=== PATIENT | female | born 1985 ===

== ENCOUNTER 2020-03-20 08:04 | Outpatient (REF) | payer MEDICAID, SELFPAY ==
[2020-03-21 15:33] LABS: BV Int Neg Control Negative (Negative)
[2020-03-21 15:34] LABS: BV Int Pos Control Positive (Positive)
== END 2020-03-20 08:05 | disposition home or self-care (01) ==
LOC: HO.LAB 08:04
PROVIDERS: PCP Family Medicine; Referring Provider Family Medicine; Visit Provider Advanced Practice Midwife
DX: Z01.419 Encounter for gynecological examination (general) (routine) without abnormal findings (principal); N92.1 Excessive and frequent menstruation with irregular cycle; E66.9 Obesity, unspecified; N64.3 Galactorrhea not associated with childbirth
CPT/HCPCS: 87480; 87510; 87660

== ENCOUNTER → 2020-04-21 10:42 | Outpatient (BNVA) | payer MEDICAID, SELFPAY | PROVIDERS: Visit Provider Advanced Practice Midwife | DX: R58 Hemorrhage, not elsewhere classified (principal) | CPT/HCPCS: 99212 ==

== ENCOUNTER 2020-05-02 10:28 | Outpatient (REF) | payer MEDICAID, SELFPAY ==
[2020-05-03 09:08] LABS: Prolactin 5.7 ng/mL
== END 2020-05-02 10:29 | disposition home or self-care (01) ==
LOC: HO.LAB 10:28
PROVIDERS: PCP Family Medicine; Visit Provider Advanced Practice Midwife
DX: N64.3 Galactorrhea not associated with childbirth (principal)
CPT/HCPCS: 84146

== ENCOUNTER → 2020-07-18 11:45 | Outpatient (BNVA) | payer MEDICAID, SELFPAY | PROVIDERS: PCP Family Medicine; Visit Provider Advanced Practice Midwife ==

== ENCOUNTER 2020-11-24 11:09 | Outpatient (REF) | payer MEDICAID, SELFPAY ==
[2020-11-25 09:24] LABS: BV Int Neg Control Negative (Negative); BV Int Pos Control Positive (Positive)
== END 2020-11-24 11:10 | disposition home or self-care (01) ==
LOC: HO.LAB 11:09
PROVIDERS: Visit Provider Advanced Practice Midwife
DX: Z30.09 Encounter for other general counseling and advice on contraception (principal); N89.8 Other specified noninflammatory disorders of vagina
CPT/HCPCS: 87480; 87510; 87660; 99212

== ENCOUNTER 2021-11-16 13:29 | Emergency (ER) | payer MEDICAID, SELFPAY ==
[2021-11-16 13:46] VITALS: BP 146/102; PULSE 107; RESP 20; TEMP 36.9; O2SAT 100; BMI 31.5
[2021-11-16 14:02] LABS: MANUAL DIFF FLAG NO
[2021-11-16 14:05] LABS: Basophils Percent Auto 0.3 % (0-2); Eosinophils Absolute Auto 0.1 X10*3/uL (0.0-0.4); Hematocrit 36.6 % (37.0-47.0); Hemoglobin 12.4 g/dl (12.0-16.0); Imm Gran Abs Auto 0.04 X10*3/uL (0.00-0.03); Imm Gran Pct Auto 0.3 % (0.0-0.4); Lymphocytes Absolute Auto 4.2 X10*3/uL (1.2-4.9); Lymphocytes Percent Auto 35.3 % (20-40); Mean Corpuscular HGB Conc 33.9 g/dl (31.0-35.0); Mean Corpuscular Hemoglobin 29.2 pg (27.0-33.0); Mean Corpuscular Volume 86.1 fL (80.0-98.0); Monocytes Absolute Auto 0.7 X10*3/uL (0.1-1.2); Monocytes Percent Auto 6.2 % (2-11); Neutrophils Absolute Auto 6.7 x10*3/uL (2.0-8.3); Neutrophils Percent Auto 56.9 % (45-73); Platelet Count 268 X10*3/uL (160-400); Red Blood Count 4.25 X10*6/uL (4.20-5.50); Red Cell Distribution Width 12.1 % (11.0-16.0); White Blood Count 11.8 X10*3/uL (4.8-10.8)
[2021-11-16 14:12] LABS: Appearance Urine HAZY; Color Urine YELLOW; Glucose Urine UA NEG (NEG); Leukocyte Esterase Urine TRACE (NEG); Nitrite Urine NEG (NEG); UACC Culture Trigger NO; Urine Blood 3+ (NEG); Urine Ketones NEG (NEG); Urine Protein NEG (NEG-TRACE)
[2021-11-16 14:22] LABS: Anion Gap 12 (12-20); Blood Urea Nitrogen 3 mg/dL (9-16); Calcium 8.7 mg/dL (8.4-10.2); Carbon Dioxide 25 mmol/L (22-29); Chloride 105 mmol/L (96-108); Creatinine Clr Calc Pharmacy 74.5; Estimated Glomerular Filt Rate > 60; Glucose Random 93 mg/dL (60-115); Potassium 4.6 mmol/L (3.3-5.1); Sodium 137 mmol/L (135-145)
[2021-11-16 14:24] LABS: Bacteria Urine 1+ /LPF; Squamous Epithelial Cell Urine 2+ /LPF
--- NOTE | 2021-11-16 16:31 | ED_ITS ---
HPI - Female Genitourinary General Chief complaint: Urogenital-Female Stated complaint: lower back pain Time Seen by Provider: 11/16/21 16:31 Source: patient Mode of arrival: ambulatory Limitations: no limitations History of Present Illness HPI Narrative: 36 yo female presents to the ER with almost one week of pain upon urination as well as lower back pain. She reports a burning sensation when she urinate and she has pain in her bladder. She reports history of UTI in August. She denies any chance of at this time. She denies any other abdominal pain. She denies any nausea, vomiting, diarrhea, fever, chills. She denies any flank pain and reports the pain is intermittent in her lower back. It is worse with movement and bending down. MD elicited complaint: dysuria and back pain Pertinent past history: recurrent UTIs Onset (ago): day(s) (6) Location of symptoms: suprapubic Severity: moderate Female Urogenital Radiation: Non-Radiating Severity scale (1-10): 5 Quality of pain: burning Consistency: intermittent Vaginal discharge: none Vaginal bleeding: none Urinary symptoms: Dysuria, Urgency and Frequency Exacerbating factors: urination Relieving factors: none Associated symptoms: denies other symptoms Treatment prior to arrival: none Sexual activity: Yes Patient : No Related Data Previous Rx's Medication Instructions Recorded clotrimazole 1 % vaginal cream 1 appful vaginal BEDTIME #45 grams 11/24/20 norethindrone 0.5 mg-ethinyl 1 tab PO DAILY 28 days #28 tabs 11/24/20 estradiol 35 mcg tablet (Necon) metronidazole 500 mg tablet 500 mg PO BID 7 days #14 tabs 11/26/20 (Flagyl) levofloxacin 750 mg tablet 750 mg PO DAILY 7 days #7 tabs 11/16/21 phenazopyridine 100 mg tablet 100 mg PO TID PRN pain 6 doses #6 11/16/21 (Pyridium) tabs Allergies Allergy/AdvReac Type Severity Reaction Status Date / Time No Known Allergies Allergy Mild NOT Verified 11/24/20 11:44 APPLICABLE Review of Systems Review of Systems: Constitutional: No Fever, No Chills Cardiovascular: No Chest Pain, No SOB Respiratory: No Cough, No Sputum Gastrointestinal: No Nausea, No Vomiting, No Diarrhea, + abdominal Pain Genitourinary: + Dysuria, + Urinary Frequency, No Hematuria Musculoskeletal: No joint pain, No Myalgias Skin: No Skin Lesions, No rash Neuro: No Weakness, No Dizziness, No Headache Heme/Lymph: No Bruising, No Lymphadenopathy Endocrine: No Polyuria, No Polydipsia PMFSH Past Medical History Surgical History Hx of section Family History Family History Father Liver cancer Mother Diabetes mellitus Family/Other Down syndrome Social History Social History Alcohol intake: current Alcohol intake frequency: a few times a week Advance Directives: No Advance Directives Information Provided: No Patient : No Physical Exam Vital Signs: Vital Signs: Last Vital Signs Temp 98.5 F 11/16/21 13:46 Pulse 107 H 11/16/21 13:46 Resp 20 11/16/21 13:46 BP 146/102 H 11/16/21 13:46 Pulse Ox 100 11/16/21 13:46 O2 Del Method 11/16/21 13:46 BMI result Body Mass Index 31.5 Appearance: Alert. Oriented X3. No acute distress. Appears well, nontoxic Eyes: Pupils equal, round and reactive to light. ENT: Pharynx normal. Neck: Normal inspection. Neck supple. CVS: Normal heart rate and rhythm. Pulses normal. Respiratory: No respiratory distress. Breath sounds normal. Abdomen: Soft and nontender. +BS x4 Back: No CVA tenderness. No lumbar tenderness Skin: Skin warm and dry. Normal skin color. Normal skin turgor. No rashes. Extremities: No lower extremity edema. Neuro: Oriented X 3. Grossly normal, nonfocal Course Course Course Narrative: 36-year-old female presents to the ER with dysuria for the last 6 days. She also reports lower back pain. She denies any flank pain and has no CVA tenderness on examination. No nausea, vomiting, fever or signs of systemic illness. She appears well on exam. Her lab work shows a white count of 11.8. She has normal renal function. Her urinalysis is showing a blood and leukocyte esterase. There is bacteria as well. Her exam and clinical presentation are consistent with urinary tract infection. Doubt kidney stones given her appearance and lack of CVA tenderness. Will treat with levofloxacin given the presence of blood, duration of her symptoms could be an ascending infection although clinically she appears well. She is tolerating p.o. well and is stable for discharge home wtih PO abx and pyridiuim. She was counseled and given strict return precautions. MDM - Female Genitourinary Lab Data Result diagrams: 11/16/21 13:57 11/16/21 13:57 Labs: Lab Results 11/16/21 11/16/21 11/16/21 Range/Units 13:57 13:57 13:57 WBC 11.8 H (4.8-10.8) X10*3/uL RBC 4.25 (4.20-5.50) X10*6/uL Hgb 12.4 (12.0-16.0) g/dl Hct 36.6 L (37.0-47.0) % MCV 86.1 (80.0-98.0) fL MCH 29.2 (27.0-33.0) pg MCHC 33.9 (31.0-35.0) g/dl RDW 12.1 (11.0-16.0) % Plt Count 268 (160-400) X10*3/uL MPV 10.0 (9.4-12.3) fL Immature Gran % (Auto) 0.3 (0.0-0.4) % Neut % (Auto) 56.9 (45-73) % Lymph % (Auto) 35.3 (20-40) % [place] % (Auto) 6.2 (2-11) % Eos % (Auto) 1.0 (0-4) % Baso % (Auto) 0.3 (0-2) % Lymph # (Auto) 4.2 (1.2-4.9) X10*3/uL [place] # (Auto) 0.7 (0.1-1.2) X10*3/uL Eos # (Auto) 0.1 (0.0-0.4) X10*3/uL Baso # (Auto) 0.0 (0.0-0.2) X10*3/uL Abs Immat Gran (auto) 0.04 H (0.00-0.03) X10*3/uL Absolute Neuts (auto) 6.7 (2.0-8.3) x10*3/uL Absolute Nucleated RBC 0.000 (0.0-0.012) X10*3/uL Nucleated RBC % (auto) 0.0 (0.0-0.2) /100WBC Sodium 137 (135-145) mmol/L Potassium 4.6 (3.3-5.1) mmol/L Chloride 105 (96-108) mmol/L Carbon Dioxide 25 (22-29) mmol/L Anion Gap 12 (12-20) BUN 3 L (9-16) mg/dL Creatinine 0.91 (0.5-1.4) mg/dL Estim Creat Clear Calc 74.5 Estimated GFR > 60 Random Glucose 93 (60-115) mg/dL Calcium 8.7 (8.4-10.2) mg/dL Urine Color YELLOW Urine Appearance HAZY Urine pH 6.0 (5.0-8.0) Ur Specific [place] 1.010 (1.005-1.025) Urine Protein NEG (NEG-TRACE) MG/DL Urine Glucose (UA) NEG (NEG) MG/DL Urine Ketones NEG (NEG) MG/DL Urine Blood 3+ H (NEG) Urine Nitrite NEG (NEG) Ur Leukocyte Esterase TRACE H (NEG) Urine RBC 5-9 H (0) /HPF Urine WBC 1-4 (0-4) /HPF Ur Squamous Epith Cells 2+ /LPF Urine Bacteria 1+ /LPF Discharge Plan Discharge Clinical Impression: Urinary tract infection Patient Disposition: Home, Self-Care Additional Instructions: Your urine test was positive for infection. Take the prescribed antibiotic as directed. Complete the entire course, do not skip any doses. Take the prescribed Pyridium as needed for bladder pain If you develop new or worsening symptoms call 911 or come back to the ER for further evaluation. Prescriptions: New levofloxacin 750 mg tablet 750 mg PO DAILY 7 Days Qty: 7 0RF phenazopyridine [Pyridium] 100 mg tablet 100 mg PO TID PRN (Reason: pain) Qty: 6 0RF No Action metronidazole [Flagyl] 500 mg tablet 500 mg PO BID 7 Days Qty: 14 0RF Rx Instructions: Take with food, Avoid alcohol and vinegar products Necon 0.5/35 (28) 0.5-35 mg-mcg tablet 1 tab PO DAILY 28 Days Qty: 28 7RF clotrimazole 1 % cream 1 appful vaginal BEDTIME Qty: 45 3RF Stand Alone Forms: Work/School Release
[2021-11-16 17:10] LABS: UPreg QC Valid YES; Urine Pregnancy NEGATIVE (NEGATIVE)
== END 2021-11-16 16:50 | disposition home or self-care (01) ==
PROVIDERS: Physician Assistant; Emergency Provider Emergency Medicine; PCP Family Medicine
DX: N39.0 Urinary tract infection, site not specified (principal); M54.50 Low back pain, unspecified; R30.0 Dysuria; Z87.440 Personal history of urinary (tract) infections; Z79.899 Other long term (current) drug therapy
CPT/HCPCS: 36415; 80048; 81001; 81025; 85025; 99283

== ENCOUNTER 2023-03-11 08:16 | Outpatient (REF) | payer MEDICAID, SELFPAY ==
[2023-03-11 18:29] LABS: CT PCR NOT DETECTED (Not Detect.); NG PCR NOT DETECTED (Not Detect.)
[2023-03-12 15:34] LABS: BV Int Neg Control Negative (Negative); BV Int Pos Control Positive (Positive)
== END 2023-03-11 08:17 | disposition home or self-care (01) ==
LOC: HO.LNP 08:16
PROVIDERS: PCP Family Medicine; Visit Provider Advanced Practice Midwife
DX: N89.8 Other specified noninflammatory disorders of vagina (principal)
CPT/HCPCS: 0353U; 87480; 87510; 87660; 99212

== ENCOUNTER 2023-03-11 08:16 | Outpatient (AMB) | payer MEDICAID, SELFPAY ==
--- NOTE | 2023-03-11 08:24 | MHC.OFFVIS ---
Intake Vital Signs 03/11/23 08:28 Height 4 ft 10 in Weight 150 lb BMI 31.3 BP 110/76 Intake Visit Reasons: vag inf Intake Note: The patient agreed to use of a medical records coordinator during this encounter. Scribed for AYDIN Garland by Franchesca Meade medical records coordinator, on 03/11/2023 at 8:35 am EST. Equine Dentist Required: No Information Interpreted: non-clinical & clinical Childhood Teacher: Childhood Teacher Present (Paulina WIGGINS) Accompanied by: Self / Same As Patient Allergies No Known Allergies Allergy (Mild, Verified 03/11/23 08:28) NOT APPLICABLE Is last menstrual period known: Yes Last menstrual period: 03/01/23 HPI HPI Comments History of Present Illness Details She is here today with complaints of vaginal itching for about a week and admits using a new soap. Has used external OTC cream with temporary relief. Admits recently having UPI. Denies urinary symptoms and pelvic pain. STD blood work offered; she declines. [facility] Surgical History Hx of section Family History Father Liver cancer Mother Diabetes mellitus Family/Other Down syndrome Social History Alcohol intake: current Alcohol intake frequency: a few times a week Patient Tobacco Use Status: Never used Tobacco Sexual orientation: Straight/Heterosexual Gender identity: Female Female Reproductive History Menstrual Age of Menarche: 16 Date of last menstrual period: 03/01/23 control method: pills Physical Exam Vital Signs: Last Vital Signs BP 110/76 03/11/23 08:28 BMI result Body Mass Index 31.3 Const General: cooperative, healthy appearing, comfortable, no acute distress, well developed, alert and awake Other: General: Yes bladder normal to palpation External Female Exam: normal external appearance, normal appearance of the urethra and erythema (and edema) Speculum Exam - Vagina: normal appearance of the vagina, normal palpation and abnormal vaginal discharge white (abundant) Speculum Exam - Cervix: normal appearance of the cervix and normal palpation Bimanual exam- vagina & uterus: normal bimanual exam, normal palpation, bladder normal to palpation and normal palpation Bimanual Exam- Adnexa, other: normal adnexae and no masses Assessment & Plan Assessment & Plan (1) Vaginal itching: Code(s): N89.8 - Other specified noninflammatory disorders of vagina Plan: Discussed: BV testing and GC/CT panel done today. Await results and treat accordingly. Advised to clean with water only, no soaps to the area, dry well, use cool compress if needed, wear cotton underwear and no intimacy until fully healed. Rx sent to pharmacy. Encouraged to use condoms for STD and prevention. All of her questions and concerns were addressed to the best of my ability and shared decision making. She is agreeable to plan of care. RTO for AG. Medications: New fluconazole 150 mg PO ONCE PRN 1 tab 0RF personal 1 day Coding Level of Care Code Est Pt Level 3 (60969) Diagnoses Vaginal itching N89.8
[2023-03-11 08:28] VITALS: BP 110/76; BMI 31.3
== END 2023-03-11 08:47 | disposition home or self-care (01) ==
PROVIDERS: PCP Family Medicine; Visit Provider Advanced Practice Midwife
DX: N89.8 Other specified noninflammatory disorders of vagina (principal)
CPT/HCPCS: 99213

== ENCOUNTER 2023-05-05 10:30 | Outpatient (AMB) | payer MEDICAID, SELFPAY ==
--- NOTE | 2023-05-05 10:32 | A.OFFVIS_ITS ---
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 Doing well with no concerns. She reports left nipple discharge with expression. Currently is sexually active. She denies vaginal itching and irritation. STI screening UTD. She declines further testing. Denies family history of breast, ovarian or colon cancer. She denies any contraindications to control such as: migraines with aura, history of DVT or pulmonary emboli, high blood pressure, liver disease, thrombolic disorders, breast cancer, Lupus, +WEN, or smoking. PFSH Surgical History Hx of section Family History Father Liver cancer Mother Diabetes mellitus Family/Other Down syndrome Social History Alcohol intake: current Alcohol intake frequency: a few times a week Patient Tobacco Use Status: Never used Tobacco Sexual orientation: Straight/Heterosexual Gender identity: Female Female Reproductive History Menstrual Age of Menarche: 16 Date of last menstrual period: 04/14/23 control method: pills Total pregnancies: 3 Full term: 2 Number of Living Children: 2 Ab spontaneous: 1 Date of last pap smear: 01/03/18 (neg pap and hpv) Review of Systems Const All systems reviewed & are unremarkable except as noted in HPI and below Reports as per HPI Eyes Reports no additional complaints ENT Reports no additional complaints Card Reports no additional complaints Resp Reports no additional complaints GI Reports as per HPI and Reports no additional complaints Reports as per HPI Musc Reports no additional complaints Skin/Breast Reports as per HPI Neuro Reports no additional complaints Psych Reports no additional complaints Endo Reports no additional complaints Enrique/Lymph Reports no additional complaints Aller/Immun Reports no additional complaints Physical Exam Vital Signs: Last Vital Signs BP 120/80 05/05/23 10:45 BMI result Body Mass Index 30.9 Const General: cooperative, healthy appearing, no acute distress, well developed and alert Orientation/consciousness: patient oriented x3 HEENT Head: Yes normal to inspection Eyes General: appearance normal, both eyes and all related structures Neck Neck: Yes normal visual inspection Thyroid: Thyroid normal Chest Other: Left breast lump noted at 11 to 12 o'clock position nontender. No discharge elicited with exam today. Chest palpation & inspection: normal inspection of the chest, mass and other (no puckering, dimpling, peau de orange, retraction, discharge, masses) Breast/axilla inspection: normal inspection of the breasts Breast/axilla palpation: normal palpation of the breasts Resp Effort & Inspection: normal respiratory effort GI Inspection: Yes normal to inspection Palpation (GI): Soft to palpation Rectal Exam - Female: deferred General: Yes bladder normal to palpation External Female Exam: normal external appearance and normal appearance of the urethra Speculum Exam - Vagina: normal appearance of the vagina, normal palpation and normal vaginal discharge Speculum Exam - Cervix: normal appearance of the cervix, normal palpation and Other cervical findings present (Bled with Pap) Bimanual exam- vagina & uterus: normal bimanual exam, normal palpation, uterine size normal, bladder normal to palpation, normal palpation and non-tender Bimanual Exam- Adnexa, other: no masses Skin General skin exam: no rashes or lesions noted Rashes: no rashes Neuro General: patient oriented x3 Cognition (Neuro): normal cognition Extrem General: Yes normal to inspection Psych Attitude: cooperative Thought process: Normal thought process present Assessment & Plan Assessment & Plan (1) Well woman exam with routine gynecological exam: Code(s): Z01.419 - Encounter for gynecological examination (general) (routine) without abnormal findings Plan: Discussed: Current recommendations for pap smears per ASCCP guidelines. Breast awareness and periodic breast exams. Maintain a healthy lifestyle including a well balanced diet and routine exercise. control hormone use warnings: go to ER if and loss of vision, blindness, severe headache, chest pain or difficulty breathing, severe abdominal pain, or any pain or swelling in an extremity. All of her questions and concerns were addressed to the best of my ability. 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 (2) Left breast lump: Code(s): N63.20 - Unspecified lump in the left breast, unspecified quadrant Qualifiers: Breast mass location: unspecified quadrant Qualified Code(s): N63.20 - Unspecified lump in the left breast, unspecified quadrant Plan: Breast ultrasound and dial diagnostic mammogram. Advised not to milk the breast. Follow-up for test results. Orders: Orders US breast LT complete Today N63.20 - Unspecified lump in the left breast, un specified quadrant MM tomosynthesis diagnostic BI Today Z12.31 - Encounter for screening mammogram for malignant neoplasm of breast Medications: Refilled norethindrone-ethin estradiol 0.5-35 mg-mcg (Nortrel) 1 tab PO DAILY 84 tabs 4RF Coding Level of Care Code Est Pt Prev Care 18-39y(59606) Diagnoses Well woman exam with routine gynecological exam Z01.419 Mass of left breast, unspecified quadrant N63.20 Breast mass location: unspecified quadrant
[2023-05-05 10:45] VITALS: BP 120/80; BMI 30.9
== END 2023-05-05 11:29 | disposition home or self-care (01) ==
LOC: HO.HWS 10:30
PROVIDERS: PCP Family Medicine; Visit Provider Advanced Practice Midwife
DX: Z01.419 Encounter for gynecological examination (general) (routine) without abnormal findings (principal); N63.20 Unspecified lump in the left breast, unspecified quadrant
CPT/HCPCS: 99395

== ENCOUNTER 2023-05-05 10:30 | Outpatient (REF) | payer MEDICAID, SELFPAY ==
[2023-05-12 21:38] LABS: HPV mRNA E6/E7 rflx Not Detected (Not Detected)
== END 2023-05-05 10:31 | disposition home or self-care (01) ==
LOC: HO.LNP 10:30
PROVIDERS: PCP Family Medicine; Visit Provider Advanced Practice Midwife
DX: Z01.419 Encounter for gynecological examination (general) (routine) without abnormal findings (principal); N63.20 Unspecified lump in the left breast, unspecified quadrant
CPT/HCPCS: 87624; 88142; 99395

== ENCOUNTER 2023-06-03 14:16 | Outpatient (REF) | payer MEDICAID, SELFPAY | END 2023-06-03 14:17 | disposition home or self-care (01) | LOC: HO.MAMMO 14:16 | PROVIDERS: PCP Family Medicine; Visit Provider Advanced Practice Midwife | DX: N63.22 Unspecified lump in the left breast, upper inner quadrant (principal) | CPT/HCPCS: 76642; 77062; 77066 ==

== ENCOUNTER → 2023-06-03 14:30 | Outpatient (BNV) | payer MEDICAID, SELFPAY | PROVIDERS: PCP Family Medicine; Visit Provider Radiology Diagnostic Radiology | DX: N63.25 Unspecified lump in the left breast, overlapping quadrants (principal) | CPT/HCPCS: 76642; 77062; 77066 ==

== ENCOUNTER 2023-06-15 19:34 | Outpatient (REF) | payer MEDICAID, SELFPAY | END 2023-06-15 19:35 | disposition home or self-care (01) | LOC: HO.HHCLNP 19:34 | PROVIDERS: Visit Provider Internal Medicine Geriatric Medicine | DX: R07.0 Pain in throat (principal) | CPT/HCPCS: 87070 ==

== ENCOUNTER 2023-08-09 14:44 | Outpatient (REF) | payer MEDICAID, SELFPAY ==
[2023-08-09 16:29] LABS: MANUAL DIFF FLAG NO
[2023-08-09 16:33] LABS: Basophils Absolute Auto 0.1 X10*3/uL (0.0-0.2); Basophils Percent Auto 0.6 % (0-2); Eosinophils Absolute Auto 0.2 X10*3/uL (0.0-0.4); Eosinophils Percent Auto 1.6 % (0-4); Hematocrit 38.5 % (37.0-47.0); Imm Gran Abs Auto 0.04 X10*3/uL (0.00-0.03); Imm Gran Pct Auto 0.4 % (0.0-0.4); Lymphocytes Absolute Auto 3.7 X10*3/uL (1.2-4.9); Lymphocytes Percent Auto 34.1 % (20-40); Mean Corpuscular HGB Conc 33.8 g/dl (31.0-35.0); Mean Corpuscular Hemoglobin 29.7 pg (27.0-33.0); Mean Corpuscular Volume 87.9 fL (80.0-98.0); Mean Platelet Volume 10.6 fL (9.4-12.3); Monocytes Absolute Auto 0.9 X10*3/uL (0.1-1.2); Neutrophils Percent Auto 55.3 % (45-73); Platelet Count 244 X10*3/uL (160-400); Red Blood Count 4.38 X10*6/uL (4.20-5.50); Red Cell Distribution Width 12.4 % (11.0-16.0); White Blood Count 10.9 X10*3/uL (4.8-10.8)
[2023-08-09 16:56] LABS: Estimated Average Glucose 94 mg/dL; Hemoglobin A1c % 4.9 % (<6.0)
[2023-08-09 17:04] LABS: Alanine Aminotransferase 13 U/L (0-31); Albumin Level 4.1 g/dL (3.5-5.0); Alkaline Phosphatase 70 U/L (39-117); Anion Gap 9 (12-20); Aspartate Amino Transferase 16 U/L (5-31); Bilirubin Total 0.3 mg/dL (0.0-1.0); Blood Urea Nitrogen 16 mg/dL (9-16); Calcium 9.3 mg/dL (8.4-10.2); Carbon Dioxide 27 mmol/L (22-29); Chloride 109 mmol/L (96-108); Cholesterol 196 mg/dL (<200); Estimated Glomerular Filt Rate > 60; Glucose Random 119 mg/dL (60-115); HDL Cholesterol 64 mg/dL (>40); LDL Cholesterol Calculated 117 mg/dL (<100); Potassium 4.1 mmol/L (3.3-5.1); Sodium 141 mmol/L (135-145); Total Protein 7.5 g/dL (6.5-8.0); Triglycerides 79 mg/dL (<150)
[2023-08-09 17:09] LABS: TSH reflex Free T4 1.14 uIU/mL (0.32-4.0); Vitamin D 25-OH Total 42.2 ng/mL (>30)
[2023-08-09 20:32] LABS: Reflex LDLD? No
== END 2023-08-09 14:45 | disposition home or self-care (01) ==
LOC: HO.HHCL 14:44
PROVIDERS: Visit Provider Family Medicine
DX: R00.0 Tachycardia, unspecified (principal); E55.9 Vitamin D deficiency, unspecified; R03.0 Elevated blood-pressure reading, without diagnosis of hypertension
CPT/HCPCS: 36415; 80053; 80061; 82306; 83036; 84443; 85025

== ENCOUNTER 2024-03-13 15:31 | Outpatient (AMB) | payer MEDICAID, SELFPAY ==
--- NOTE | 2024-03-13 15:37 | MHC.OFFVIS ---
Vital Signs 03/13/24 15:40 Height 4 ft 10 in Weight 147 lb 11.355 oz BMI 30.9 Intake Visit Reasons: vaginal discharge Windows Vmware Administrator Required: No Information Interpreted: non-clinical & clinical Process Validation Engineer: Process Validation Engineer Present (Paulina WIGGINS) Accompanied by: Self / Same As Patient Allergies No Known Allergies Allergy (Mild, Verified 03/13/24 15:40) NOT APPLICABLE Is last menstrual period known: Yes HPI Comments Details: The patient is complaining of vaginal discharge, clear to whitish, associated with burning and itching but no foul odor. It started few days ago ago. The patient has no other associated symptoms. PFSH Surgical History Hx of section Family History Father Liver cancer Mother Diabetes mellitus Family/Other Down syndrome Social History Alcohol intake: current Alcohol intake frequency: a few times a week Patient Tobacco Use Status: Never used Tobacco Sexual orientation: Straight/Heterosexual Gender identity: Female Female Reproductive History Menstrual Age of Menarche: 16 Review of Systems Const All systems reviewed & are unremarkable except as noted in HPI and below Physical Exam Vital Signs: BMI result Body Mass Index 30.9 General: Yes no CVA tenderness External Female Exam: normal external appearance and normal appearance of the urethra Speculum Exam - Vagina: normal appearance of the vagina, normal palpation, no lesions and no masses Speculum Exam - Cervix: normal appearance of the cervix, normal palpation, no lesions, no masses and nontender Bimanual exam- vagina & uterus: normal bimanual exam, normal palpation, uterine size normal, normal palpation, uterine shape normal, No Cervical tenderness present and non-tender Bimanual Exam- Adnexa, other: normal adnexae Back/Spine/Pelvis Back: no CVA tenderness Assessment & Plan Assessment & Plan (1) Vulvovaginitis: Code(s): N76.0 - Acute vaginitis Category: Medical Plan: GC/CT, Bacterial Vaginosis panel taken, Terazol 0.8% q.h.s. for 3 days was sent to the patient's pharmacy. The patient was instructed to call if symptoms don't improve in 48 hours. Medications: New terconazole 0.8% 1 appful vaginal BEDTIME 3 days 20 grams 0RF Coding Level of Care Code Est Pt Level 3 (57616) Diagnoses Vulvovaginitis N76.0
[2024-03-13 15:40] VITALS: BMI 30.9
== END 2024-03-13 15:53 | disposition home or self-care (01) ==
PROVIDERS: PCP Family Medicine; Visit Provider Obstetrics & Gynecology
DX: N76.0 Acute vaginitis (principal)
CPT/HCPCS: 99213

== ENCOUNTER 2024-05-15 14:22 | Outpatient (REF) | payer MEDICAID, SELFPAY | END 2024-05-15 14:23 | disposition home or self-care (01) | LOC: HO.LNP 14:22 | PROVIDERS: PCP Family Medicine; Visit Provider Advanced Practice Midwife | DX: Z01.419 Encounter for gynecological examination (general) (routine) without abnormal findings (principal); N92.1 Excessive and frequent menstruation with irregular cycle | CPT/HCPCS: 99395; 99459 ==

== ENCOUNTER 2024-05-15 14:22 | Outpatient (AMB) | payer MEDICAID, SELFPAY ==
--- NOTE | 2024-05-15 14:34 | A.OFFVIS_ITS ---
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 Doing well with no concerns. BTB at times, takes pills late at times, no pelvic pain, itching, odor or urinary symptoms. Tried other products: Mirena-pelvic pain and ovarian cyst, Nexplanon- bleed all the time. Hx. left breast cyst, not having any pain. Regular monthly menses. Currently is sexually active. She denies vaginal itching and irritation. STI screening offered; she accepts. She denies any contraindications to control such as: migraines with aura, history of DVT or pulmonary emboli, high blood pressure, liver disease, thrombolic disorders, Lupus, +WEN, breast cancer, or smoking. She tries to eat healthy and stays active with exercise. Denies family history of breast, ovarian or colon cancer. Last pap smear 2022, negative. PFSH Surgical History Hx of section Family History Father Liver cancer Mother Diabetes mellitus Uterine cancer Family/Other Down syndrome Social History Alcohol intake: current Alcohol intake frequency: a few times a week Patient Tobacco Use Status: Never used Tobacco Sexual orientation: Straight/Heterosexual Gender identity: Female Female Reproductive History Menstrual Age of Menarche: 16 Date of last menstrual period: 05/08/24 control method: pills Total pregnancies: 3 Full term: 2 Number of Living Children: 2 Ab spontaneous: 1 Date of last pap smear: 05/05/23 (neg pap and hpv) Review of Systems Const All systems reviewed & are unremarkable except as noted in HPI and below Reports as per HPI Eyes Reports no additional complaints ENT Reports no additional complaints Card Reports no additional complaints Resp Reports no additional complaints GI Reports as per HPI and Reports no additional complaints Reports as per HPI Musc Reports no additional complaints Skin/Breast Reports as per HPI Neuro Reports no additional complaints Psych Reports no additional complaints Endo Reports no additional complaints Enrique/Lymph Reports no additional complaints Aller/Immun Reports no additional complaints Physical Exam Vital Signs: Last Vital Signs BP 120/74 05/15/24 14:35 BMI result Body Mass Index 32.8 Const General: cooperative, healthy appearing, no acute distress, well developed and alert Orientation/consciousness: patient oriented x3 HEENT Head: Yes normal to inspection Eyes General: appearance normal, both eyes and all related structures Neck Neck: Yes normal visual inspection Thyroid: Thyroid normal Chest Chest palpation & inspection: normal inspection of the chest and other (no puckering, dimpling, peau de orange, retraction, discharge, masses) Breast/axilla inspection: normal inspection of the breasts Breast/axilla palpation: normal palpation of the breasts Resp Effort & Inspection: normal respiratory effort GI Inspection: Yes normal to inspection Palpation (GI): Soft to palpation Rectal Exam - Female: deferred General: Yes bladder normal to palpation External Female Exam: normal external appearance and normal appearance of the urethra Speculum Exam - Vagina: normal appearance of the vagina, normal palpation and normal vaginal discharge Speculum Exam - Cervix: normal appearance of the cervix and normal palpation Bimanual exam- vagina & uterus: normal bimanual exam, normal palpation, uterine size normal, bladder normal to palpation, normal palpation and non-tender Bimanual Exam- Adnexa, other: no masses Skin General skin exam: no rashes or lesions noted Rashes: no rashes Neuro General: patient oriented x3 Cognition (Neuro): normal cognition Extrem General: Yes normal to inspection Psych Attitude: cooperative Thought process: Normal thought process present Assessment & Plan Assessment & Plan (1) Well woman exam with routine gynecological exam: Code(s): Z01.419 - Encounter for gynecological examination (general) (routine) without abnormal findings Category: Medical (2) Breakthrough bleeding on control pills: Code(s): N92.1 - Excessive and frequent menstruation with irregular cycle Category: Medical Plan Discussed: Current recommendations for pap smears per ASCCP guidelines. Breast awareness and periodic breast exams. Maintain a healthy lifestyle including a well balanced diet and routine exercise. Use condoms for STI and prevention. Discussed options for control, including the NuvaRing, patient prefers to stay on the pill if possible and we will strive to take it on time, advised to set cell phone alert says a reminder and to continue in the evening with food due to GI. Call sooner if there is any concerns, refill for the year. control hormone use warnings: go to ER if and loss of vision, blindness, severe headache, chest pain or difficulty breathing, severe abdominal pain, or any pain or swelling in an extremity. Patient verbalizes understanding and agrees to the plan of care. She was given opportunity to ask questions and all questions were answered to the best of my ability. 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 This note is constructed using voice recognition software. While every effort has been made to ensure accuracy, feed research technician errors may have been included. Orders: Orders US pelvic and transvaginal Today N92.1 - Excessive and frequent menstruation with irregular cycle CT NG by PCR Today N92.1 - Excessive and frequent menstruation with irregular cycle Bacterial Vaginosis Panel Today N92.1 - Excessive and frequent menstruation with irregular cycle Medications: Refilled norethindrone-ethin estradiol 0.5-35 mg-mcg (Nortrel) 1 tab PO DAILY 84 tabs 4RF Coding Level of Care Code Est Pt Prev Care 18-39y(88556) Diagnoses Well woman exam with routine gynecological exam Z01.419 Breakthrough bleeding on control pills N92.1
[2024-05-15 14:35] VITALS: BP 120/74; BMI 32.8
== END 2024-05-15 15:27 | disposition home or self-care (01) ==
LOC: HO.HWS 14:22
PROVIDERS: PCP Family Medicine; Visit Provider Advanced Practice Midwife
DX: Z01.419 Encounter for gynecological examination (general) (routine) without abnormal findings (principal); N92.1 Excessive and frequent menstruation with irregular cycle
CPT/HCPCS: 99395; 99459

== ENCOUNTER 2024-05-15 15:13 | Outpatient (REF) | payer MEDICAID, SELFPAY ==
[2024-05-15 18:16] LABS: Bacterial Vaginosis PCR NEGATIVE (Negative); Candida Group PCR NOT DETECTED (Not Detect); Candida glab krusei PCR NOT DETECTED (Not Detect); Trichomonas vaginalis PCR NOT DETECTED (Not Detect)
[2024-05-16 12:03] LABS: CT PCR NOT DETECTED (Not Detect.); NG PCR NOT DETECTED (Not Detect.)
== END 2024-05-15 15:14 | disposition home or self-care (01) ==
LOC: HO.LAB 15:13
PROVIDERS: Visit Provider Advanced Practice Midwife
DX: N92.1 Excessive and frequent menstruation with irregular cycle (principal)
CPT/HCPCS: 0352U; 87491; 87591

== ENCOUNTER 2024-06-07 11:04 | Outpatient (REF) | payer MEDICAID, SELFPAY ==
--- NOTE | ~2024-06-07 | US_ITS ---
CLINICAL HISTORY: N92.1 - Excessive and frequent menstruation with irregular cycle US pelvis transabdominal and transvaginal Comparison: None available. Findings: Imaged uterus is anteverted and measures 9 cm long axis. Imaged endometrium measures 0.8 cm thickness. Portions of the endometrium obscured by side of the artifacts. Small cystic structures about the cervix likely due to nabothian cysts. No significant free fluid within the imaged pelvis. Mild wall thickening of the urinary bladder is likely due to underdistention of the time of the imaging. No solid mass associated with either adnexa. No drainable fluid collection by ultrasound. Right ovary 2.5 x 1.9 x 1.8 cm. Left ovary 2.5 x 2.4 x 1.6 cm. With decrease in size and/or measurements of the imaged ovaries relative to reported prior. Prior imaging not available for review at this time. IMPRESSION: 1. Imaged endometrium measures 0.8 cm thickness. 2. No ultrasound findings of ovarian torsion. This document has been electronically signed by: Darci Cole MD on 06/09/2024 01:14:14
== END 2024-06-07 11:05 | disposition home or self-care (01) ==
LOC: HO.US 11:04
PROVIDERS: PCP Family Medicine; Visit Provider Advanced Practice Midwife
DX: N92.1 Excessive and frequent menstruation with irregular cycle (principal)
CPT/HCPCS: 76830; 76856

== ENCOUNTER → 2024-06-07 11:05 | Outpatient (BNV) | payer MEDICAID, SELFPAY | PROVIDERS: PCP Family Medicine; Visit Provider Radiology Neuroradiology | DX: N92.1 Excessive and frequent menstruation with irregular cycle (principal); N88.8 Other specified noninflammatory disorders of cervix uteri | CPT/HCPCS: 76830; 76856 ==

== ENCOUNTER → 2024-07-05 13:11 | Outpatient (AMB) | payer MEDICAID, SELFPAY ==
--- NOTE | 2024-07-05 13:11 | A.OFFVIS_ITS ---
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 Time spent included review of pertinent office notes in the electronic health record; review of laboratory and imaging results; review of personal family medical history; discussing diagnosis and plan of care with the patient; documenting the encounter in the EMR. Patient presents to discuss: Follow up ultrasound results, history of breakthrough bleeding on control pills. PFSH Surgical History Hx of section Family History Father Liver cancer Mother Diabetes mellitus Uterine cancer Family/Other Down syndrome Social History Alcohol intake: current Alcohol intake frequency: a few times a week Patient Tobacco Use Status: Never used Tobacco Sexual orientation: Straight/Heterosexual Gender identity: Female Female Reproductive History Menstrual Age of Menarche: 16 Review of Systems Const All systems reviewed & are unremarkable except as noted in HPI and below Endo Reports no additional complaints Physical Exam Const General: cooperative, healthy appearing and no acute distress Psych Appearance: well kempt Attitude: cooperative Thought process: Normal thought process present Telehealth Telehealth Telehealth Platform: Telephone Location of provider rendering services: practice address Location of patient: address on file Patient Identification confirmed using: Name, : Yes Telehealth method: video Patient verbally consented to treatment: Yes Patient verbally consented to billing insurance company: Yes Patient informed of any privacy concerns related to visit: Yes Results Reviewed Results Reviewed: [address] [address] Ultrasound Report Signed Patient: Chhaya Panda MR#: [id number] : 1985 Acct:[id number] Age/Sex: 38 / F ADM Date: 06/07/24 Loc: [facility].US Attending Dr: Rose Graves CNM Ordering Physician: Rose Graves CNM Date of Service: 06/07/24 Procedure(s): US pelvic and transvaginal Accession Number(s): [id number] cc: Rose Graves CNM; Sol Flowers MD~ CLINICAL HISTORY: N92.1 - Excessive and frequent menstruation with irregular cycle US pelvis transabdominal and transvaginal Comparison: None available. Findings: Imaged uterus is anteverted and measures 9 cm long axis. Imaged endometrium measures 0.8 cm thickness. Portions of the endometrium obscured by side of the artifacts. Small cystic structures about the cervix likely due to nabothian cysts. No significant free fluid within the imaged pelvis. Mild wall thickening of the urinary bladder is likely due to underdistention of the time of the imaging. No solid mass associated with either adnexa. No drainable fluid collection by ultrasound. Right ovary 2.5 x 1.9 x 1.8 cm. Left ovary 2.5 x 2.4 x 1.6 cm. With decrease in size and/or measurements of the imaged ovaries relative to reported prior. Prior imaging not available for review at this time. IMPRESSION: 1. Imaged endometrium measures 0.8 cm thickness. 2. No ultrasound findings of ovarian torsion. This document has been electronically signed by: Darci Cole MD on 06/09/2024 01:14:14 Dictated By: Darci Cole MD Signed By: <Electronically signed by Darci Cole MD in OV> 06/09/24113 DD/ 3 TD/TT: 06/09/24113 Operator Receptionist: Assessment & Plan Assessment & Plan (1) Breakthrough bleeding on control pills: Code(s): N92.1 - Excessive and frequent menstruation with irregular cycle Category: Medical Plan: She reports she has been compliant with taking her pill at a certain time in the breakthrough bleeding has resolved on its own. She is uncertain if she will have a future but wants to continue the control pills at this time. (2) Encounter to discuss test results: Code(s): Z71.2 - Person consulting for explanation of examination or test findings Plan Discussed: Ultrasound findings-IMPRESSION: 1. Imaged endometrium measures 0.8 cm thickness. 2. No ultrasound findings of ovarian torsion. Also mentioned of nabothian cyst were discussed. She has no other concerns. The patient expressed understanding and agreement with the plan of care. All of her questions and concerns were addressed to the best of my ability. Annual exam scheduled for April of 2025. This note is constructed using voice recognition software. While every effort has been made to ensure accuracy, habitat biologist errors may have been included. Coding Level of Care Code Tele Est Pt Level 2 (37202) Diagnoses Breakthrough bleeding on control pills N92.1 Encounter to discuss test results Z71.2
== END | disposition home or self-care (01) ==
PROVIDERS: PCP Family Medicine; Visit Provider Advanced Practice Midwife
CPT/HCPCS: 99212

== ENCOUNTER 2024-08-16 11:16 | Outpatient (REF) | payer MEDICAID, SELFPAY ==
--- OUTSIDE RECORDS SUMMARY | 2024-08-16 13:30 | XMS_ITS | Encounter Summary ---
Author Organization [employer] Address [address] [facility] 7 [place] [address] Care Team Providers Care Fib[employer] Finisher Name Role Phone Sol Flowers MD Primary Care Provider Reason for Visit * Reason Comments Pre-visit Planning SDOH Screening negat stephany and Tobacco screening negative Encounter Details Date Type Department Care Team (Late st Contact Info) Description 08/08/2024 Patient Outreach [facility] [address] [place], [place] [phone] Sol Flowers MD [address] [place], [place] [phone] Pre-visit Planning (SDOH Screening negative and Tobacco screening negative) Social History Tobacco Use Types Packs/Day Years Used Date Smoking Tobacco: Never Smokeless Tobacco: Never Alcohol Use Standard Drinks/Week Comments Yes 0 (1 standard drink = 0.6 oz pur e alcohol) Rare Depression Answer Date Recorded Patient Health Questionnaire-9 Score 0 08/09/2023 Patient Health Questionnaire-9 Score 0 08/09/2023 Last PHQ-9: Questionnaire Data Not on file 0 08/09/2023 Housing Stability Answer Date Recorded What is your housing situation today? I have shruthi guero 08/08/[address] you li ve. Do you have problems with any of the following? None of the above 08/08/2024 Food Insecurity Answer Date Recorded Within the past 12 months, y ou worried that your food would run out before you got money to buy more: Never True 08/08/2024 Within the past 12 months,th e food you bought just didn't last and you didn't have enough money to get more: Never True 04/2025 Transportation Answer Date Recorded In the past 12 months, has l ack of transportation kept you from medical appts, meetings, work or from getting things needed for daily living? No 08/08/2024 Utilities Answer Date Recorded In the past 12 months, has t he electric, gas, oil or water company threatened to shut off services in your home? No 08/08/2024 Depression Answer Date Recorded Patient Health Questionnaire-2 Score 0 08/09/2023 Internet Access Answer Date Recorded Internet Access Q1 Yes 08/08/2024 Internet Access Q2 Not on file 08/08/2024 Comments Unknown Sex and Gender Information Value Date Recorded Sex Assigned at Female 03/29/2022 10:16 AM EDT Legal Sex Female 10:16 AM EDT Gender Identity Female 03/29/2022 10:16 AM EDT Sexual Orientation Choose not to disclose 2021 10:16 AM EDT documented as of this encounter Progress Notes * Leslee Bauman - 08/08/2024 9:37 AM EDT CC Leslee Rodriguez placed successful outbound call to patient for pre-visit planning. Patient name and confirmed. Patient confirms appt date and time, and has transportation arrangements. Biggest concern for appointment at this time is no concerns. Patient advised to bring to appointment a photo id and insurance card. Appropriate screenings completed in anticipation of appointment. documented in this encounter Plan of Treatment Upcoming Encounters Date Type Department Care Team (Late st Contact Info) Description 09/24/2024 10:00 AM EDT Clinical Support [facility] [address] [place] [address] documented as of this encounter Visit Diagnoses Not on filedocumented in this encounter Additional Health Concerns Assessment Noted Time PHQ-9 Depression Total Score: 0 08/09/19 24 2:08 PM EDT documented as of this encounter Care Teams [employer] Finisher Relationship Specialty Start Date End Date Sol Flowers MD [address] [place] [address] PCP - General Family Medicine 05/30/18 documented as of this encounter
--- OUTSIDE RECORDS SUMMARY | 2024-08-16 13:30 | XMS_ITS | Encounter Summary ---
Author Organization [employer] Address [address] [facility] [address] [place] [address] Care Team Providers Care Electrical Journeyman Name Role Phone Sol Flowers MD Primary Care Provider [phone] Encounter Details Date Type Department Care Team ([facility] st Contact Info) Description 08/10/2024 Population Health Risk Score [facility] ([facility]) Department [address] [phone] Provider, Population Health Generic Social History Tobacco Use Types Packs/Day Years [...] your housing situation today? I have shruthi jack 08/08/[address] you li [...] AM EDT documented as of this encounter Plan of Treatment Upcoming Encounters Date Type Department Care Team (Late st Contact Info) Description 09/24/2024 10:00 AM EDT Clinical Support [facility] [address] [place] [phone] documented as of this encounter Visit Diagnoses Not on filedocumented in this encounter Additional Health Concerns Assessment Noted Time PHQ-9 Depression Total Score: 0 08/09/19 24 2:08 PM EDT documented as of this encounter Care Teams Electrical Journeyman Relationship Specialty Start Date End Date Sol Flowers MD [address] [place] [address] PCP - General Family Medicine 05/30/18 documented as of this encounter
--- OUTSIDE RECORDS SUMMARY | 2024-08-16 13:30 | XMS_ITS | Encounter Summary ---
Author Organization [employer] Address [address] [facility] [address] [place] [address] Care Team Providers Care Manager Software Name Role Phone Sol Flowers MD Primary Care Provider [phone] Reason for Visit * Reason Comments Annual Exam Encounter Details Date Type Department Care Team ([facility] st Contact Info) Description 08/16/2024 10:30 AM EDT Office Visit [facility] [address] [place], [place] [phone] Sol Flowers MD [address] [place], [place] [phone] Routine general medical examination at a health care facility (Primary Dx); Elevated BP without diagnosis of hypertension; Vitamin D deficiency; Screening for diabetes mellitus; Screening for lipid disorders Social History Tobacco Use Types Packs/Day Years [...] AM EDT documented as of this encounter Last Filed Vital Signs Vital Sign Reading Time Taken Comments Blood Pressure 159/82 08/16/2024 10:36 AM EDT Pulse 128 08/16/2024 10:36 AM EDT Temperature 36.2 ??C (97.1 ??F) 08/16/2024 10:36 AM E DT Respiratory Rate 26 08/16/2024 10:36 AM EDT Oxygen Saturation 99% 08/16/2024 10:36 AM EDT Inhaled Oxygen Concentration - - Weight 71.4 kg (157 lb 6.4 oz) 08/16/2024 10:36 AM EDT Height - - Body Mass Index 31.83 08/09/2023 2:09 PM EDT documented in this encounter Plan of Treatment Upcoming Encounters Date Type Department Care Team (Late st Contact Info) Description 09/24/2024 10:00 AM EDT Clinical Support [facility] [address] [place], [place] [phone] Scheduled Orders Name Type Priority Associated Diagnoses Orde r Schedule TSH with Reflex to Free T4 Lab Routine Elevated BP without diagnosis of hypertension Expected: 08/16/2024 (Approximate), Expires: 08/16/2025 Hemoglobin A1c Lab Routine Screening for diabetes mellitus Expected: 08/16/2024 (Approximate), Expires: 08/16/2025 Comprehensive Metabolic Panel Lab Routine Elevated BP without diagnosis of hypertension Expected: 08/16/2024 (Approximate), Expires: 08/16/2025 Lipid Panel with Reflex to Direct LDL Lab Routine Screening for lipid disorders Expected: 08/16/2024 (Approximate), Expires: 08/16/2025 Albumin, Random Urine W/Creatinine Lab Routine Elevated BP without diagnosis of hypertension Expected: 08/16/2024 (Approximate), Expires: 08/16/2025 Vitamin D, 25-Hydroxy, Total, Immunoassay Lab Routine Vitamin D deficiency Expected: 08/16/2024 (Approximate), Expires: 08/16/2025 documented as of this encounter Visit Diagnoses Diagnosis Routine general medical examination at a health care facility- Primary Elevated BP without diagnosis of hypertension Vitamin D deficiency Screening for diabetes mellitus Screening for lipid disorders documented in this encounter Additional Health Concerns Assessment Noted Time PHQ-9 Depression Total Score: 0 08/09/19 24 2:08 PM EDT documented as of this encounter Care Teams Manager Software Relationship Specialty Start Date End Date Sol Flowers MD [address] [place] [phone] PCP - General Family Medicine 05/30/18 documented as of this encounter
--- OUTSIDE RECORDS SUMMARY | 2024-08-16 13:30 | XMS_ITS | Clinical Summary ---
Author Organization [employer] Address [address] [place] [address] 7[address] [place] [address] Care Team Providers Care Refinery Operator Reforming Unit Name Role Phone Sol Flowers MD Primary Care Provider [phone] Allergies No known active allergies Medications Nortrel 0.5/35, 28, 0.5-35 MG-MCG tablet TOME JACKSON TABLETA TODOS LOS D 05/09/20 22 Active Fiber 500 MG capsule Take 1 capsule by mouth 2 times daily. 60 capsule 3 08/09/19 24 Active Blood Pressure Monitoring (Blood Pressure Kit) kit Check blood pressure once daily and as needed 1 kit 08/17/19 25 Active Blood Pressure Monitor kit Check blood pressure once daily and as needed 1 kit 08/09/19 24 025 Discontinued(Re order (will not trigger notification to Pharmacy)) Active Problems Problem Noted Date Diagnosed Date Sinus tachycardia 08/22/2023 Assessment & Plan (08/22/2023 6:13 AM EDT): - Hx sinus tachycardia - previously evaluated with Holter monitor and echo, and there was no abnormality - check lab - consider repeating Holter monitor and transthoracic echocardiogram Elevated BP without diagnosis of hypertension Assessment & Plan (08/22/2023 6:15 AM EDT): -Goal BP < 140/90 per JNC-8 and < 130/80 per ACC/AHA guideline (Treatment threshold >=140/90) -Continue working on lifestyle modifications - Ordered blood pressure monitor kit. - Advised pt to check BP regularly and report back with recordings. - Counseled pt on cutting down salt consumption and maintaining a heathy diet. - Will continue to monitor. - Follow up in 2-4 weeks Vitamin D insufficiency 12/19/2017 Resolved Problems Problem Noted Date Diagnosed Date Resolved Date COVID-19 06/21/2023 08/09/2023 Assessment & Plan (06/21/2023 6:20 PM EST): Pt recently dxed w COVID 19 + in 06/18/2022-but states symptoms are present for aprox 13 days -so pt is out of window for tx w paxlovid which could be indicated for obesity Pt denies any concerning alarming symptoms -dextromethorphan, cepacol prn -acetaminophen for mild pain and ibuprofen prn for mod pain -ok to stop PNC tab -alarm signs and symptoms discussed w pt in case is not improving in next week to come to be reevaluated at [facility] or earlier if worsening -Denies having COVID 19 vaccine before --advised once feels better in next 2 weeks will need to consider COVID 19 vaccination and explained can get it at vaccine clinic -discussed for isolation,mask use and hand hygiene Encounters Date Type Department Care Team Description 08/16/2024 10:30 AM EDT Office Visit [address] [address] Sol Flowers MD Routine general medical examination at a health care facility (Primary Dx); Elevated BP without diagnosis of hypertension; Vitamin D deficiency; Screening for diabetes mellitus; Screening for lipid disorders 08/16/2024 Travel 08/15/[address] [address] Sol Flowers MD chart prep 08/10/2024 Population Health Risk Score [facility] Department [address] [phone] Provider, Population Health Generic 08/08/2024 Patient Outreach [address] [address] Sol Flowers MD Pre-visit Planning (SDOH Screening negative and Tobacco screening negative) 07/19/[address] [address] Sol Flowers MD Nurse Triage 06/07/2024 Orders Only [facility] External Provider, [facility] from Last 3 Months Immunizations Name Administration Dates Next Due Influenza injectable quadriv alent IIV4 with preservative 02/20/2015 Influenza, IIV3, injectable 06/11/2014 Influenza, Split (incl. purified surface antigen ) 05/03/2013 TD (adult), 2 Lf tetanus tox oid, preservative free, adsorbed 08/10/2021 Tdap 08/26/2010 Social History Tobacco Use Types Packs/Day Years Used Date Smoking Tobacco: Never Smokeless Tobacco: Never Tobacco Cessation:Counseling Given: Not Answered Alcohol Use Standard Drinks/Week Comments Yes 0 [...] not to disclose 2021 10:16 AM EDT Last Filed Vital Signs Vital Sign Reading [...] 6.4 oz) 08/16/2024 10:36 AM EDT Height 149.8 cm (4' 10.97 ) 08/09/2023 2:09 PM E DT Body Mass Index 31.83 08/09/2023 2:09 PM EDT Plan of Treatment Upcoming Encounters Date Type Department Care Team (Late st Contact Info) Description 09/24/2024 10:00 AM EDT Clinical Support [facility] [address] [place] [phone] Health Maintenance Due Date Last Done Comments Alcohol/Substance Use Screening 1999 Family Planning (PISQ) 10/24/2002 Hepatitis B Vaccines (1 of 3 - 19+ 3-dose series) 10/24/2006 COVID-19 Vaccine (2023-2 5 season) 2024 Influenza Vaccine (#1) 2024 5, 06/11/2014, 05/03/2013 Depression Screening 08/08/2024 08/09/2023, 08/09/2023 Tobacco Screening 03/06/2025 03/06/2024 SDOH Screening 08/08/2025 08/08/2024 Cervical Cancer Screening 05/05/2028 HPV/Cotest 05/05/2028 Pap Smear 05/05/2028 05/05/2023 DTaP/Tdap/Td Vaccines (3 - T d or Tdap) 08/11/2031 08/10/2021, 08/26/2010 Zoster Vaccines (1 of 2) 10/24/2037 RSV Patients and Patients Aged 60 years or older (1 - 1-dose 75+ series) 10/24/2062 HIV Screening Completed 08/12/2021 Hepatitis C Screening Completed 08/12/2021 HIB Vaccines Aged Out No longer eligi ble based on patient's age to complete this topic HPV Vaccines Aged Out No longer eligi ble based on patient's age to complete this topic Hepatitis A Vaccines Aged Out No long er eligible based on patient's age to complete this topic IPV Vaccines Aged Out No longer eligi ble based on patient's age to complete this topic Meningococcal Vaccine Aged Out No korey alejandro eligible based on patient's age to complete this topic Pneumococcal Vaccine: Pediatrics (0 to 5 Years) and At-Risk Patients (6 to 49) Years) Aged Out No longer eligible b ased on patient's age to complete this topic RSV under 20 months Aged Out No longe r eligible based on patient's age to complete this topic Rotavirus Vaccines Aged Out No longer eligible based on patient's age to complete this topic Procedures Procedure Name Priority Date/Time Associated Diagnosis Comments US PELVIS TRANSVAGINAL Routine 06/09/2024 1:14 AM EST PAP SMEAR Routine 05/05/2023 11:45 AM EST Vaginal yeast infection ZZZ HISTORICAL HEPATITIS C AB W/REFL TO HCV RNA, QN, PCR Routine 08/12/2021 12:00 AM EDT HIV 1/2 ANTIGEN/ANTIBODY, FOURTH GENERATION W/RFL Routine 08/12/2021 12:00 AM EDT from Last 3 Months or Most Recently Relevant to Health Maintenance Results * US Pelvis Transvaginal (06/09/2024 1:14 AM EST) Anatomical Region Laterality Modality Pelvis Ultrasound 06/09/2024 1:14 AM EST Narrative 06/09/2024 1:15 AM EST ? [facility] ?[address] ?[place] [address] ? Ultrasound Report ? Signed ? Patient: Panda,Chhaya ?MR#: [id number] ?? [id number] ? : 1985 ?Acct:[id number] ? Age/Sex: 38 / F ?ADM Date: 01/09/25 ? Loc: HO.US ? Attending Dr: Rose Graves CNM ? Ordering Physician: Rose Graves CNM ?? Date of Service: 06/07/24 ?? Procedure(s): US pelvic and transvaginal ?? Accession Number(s): [id number] ? cc: Rose Graves CNM; Sol Flowers MD ? CLINICAL HISTORY: N92.1 - Excessive and frequent menstruation with irregular cycle ? US pelvis transabdominal and transvaginal ? Comparison: None available. ? Findings: ?? Imaged uterus is anteverted and measures 9 cm long axis. Imaged ?? endometrium measures 0.8 cm thickness. Portions of the endometrium ?? obscured by side of the artifacts. Small cystic structures about the ?? cervix likely due to nabothian cysts. No significant free fluid within the ?? imaged pelvis. ?? Mild wall thickening of the urinary bladder is likely due to ?? underdistention of the time of the imaging. ?? No solid mass associated with either adnexa. No drainable fluid collection ?? by ultrasound. ?? Right ovary 2.5 x 1.9 x 1.8 cm. ?? Left ovary 2.5 x 2.4 x 1.6 cm. ?? With decrease in size and/or measurements of the imaged ovaries relative ?? to reported prior. Prior imaging not available for review at this time. ? IMPRESSION: ?? 1. Imaged endometrium measures 0.8 cm thickness. ?? 2. No ultrasound findings of ovarian torsion. ? This document has been electronically signed by: Darci Cole MD on ?? 06/09/2024 01:14:14 ? Dictated By: ?Darci Cole MD ? Signed By: ?<Electronically signed by Darci Cole MD in OV> ? 06/09/24113 ? DD/ 3 ? TD/TT: 06/09/244 ? Neurological Physiotherapist: ? Procedure Note Howard Cline - 06/09/[address] [address] Ultrasound Report Signed Patient: Chhaya PandaMR#: [id number] : 1985Acct:[id number] Age/Sex: 38 / FADM Date: 06/07/24 Loc: HO.US Attending Dr: Rose Graves CNM Ordering Physician: Rose Graves CNM Date of Service: 06/07/24 Procedure(s): US pelvic and transvaginal Accession Number(s): [id number] cc: Rose Graves CNM; Sol Flowers MD CLINICAL HISTORY: N92.1 - Excessive and frequent menstruation withirregular cycle US pelvis transabdominal and transvaginal Comparison: None available. Findings: Imaged uterus is anteverted and measures 9 cm long axis. Imaged endometrium measures 0.8 cm thickness. Portions of the endometrium obscured by side of the artifacts. Small cystic structures about the cervix likely due to nabothian cysts. No significant free fluid within the imaged pelvis. Mild wall thickening of the urinary bladder is likely due to underdistention of the time of the imaging. No solid mass associated with either adnexa. No drainable fluid collection by ultrasound. Right ovary 2.5 x 1.9 x 1.8 cm. Left ovary 2.5 x 2.4 x 1.6 cm. With decrease in size and/or measurements of the imaged ovaries relative to reported prior. Prior imaging not available for review at this time. IMPRESSION: 1. Imaged endometrium measures 0.8 cm thickness. 2. No ultrasound findings of ovarian torsion. This document has been electronically signed by: Darci Cole MD on 06/09/2024 01:14:14 Dictated By: Darci Cole MD Signed By: <Electronically signed by Darci Cole MD in OV> 06/09/24113 DD/ 3 TD/TT: 06/09/24113 Neurological Physiotherapist: us [facility] External Provider IMG US PROCEDURES Edited Result - Final * Pap Smear (05/05/2023 11:45 AM EST) 05/05/2023 11:4 5 AM EST 05/09/2023 8:50 AM EST [facility] - 05/13/2023 9:58 AM EST ----- ------- Name: PandaChhaya ? Age/Sex: 37/F ? : 1985 Unit#: [id number] ?? Attend Dr: Rose Graves CNM ?Re05/05/23 ?Status: DEP REF ? Location: HO.LNP ?Disch: ? ----- ------- SPEC : [id number] ?RECD: 05/09/23 ? STATUS: ??SOUT ? REQ NUM: [id number] ? CAREN: 05/05/23 ? SUBM DR: Rose Graves CNM ? ENTERED: ??05/09/23 ?SP TYPE: Pap Smr ?OTHR DR: Sol Flowers MD ? ORDERED: ??Pap Smear ? Interpretation ?? Satisfactory for evaluation. ?? Negative for intraepithelial lesion or malignancy. ?HPV mRNA E6/E7: ?NOT DETECTED ? This assay detects E6/E7 viral messenger RNA (mRNA) from 14 high-risk HPV types (16, 18, ?? 31, 33, 35, 39, 45, 51, 52, 56, 58, 59, 66, 68) ?? HPV testing performed by [facility], [place], [place]. ??See reference laboratory ?? portion of the EMR for entire report. ?Clinical Information LMP: 3 weeks ago Previous PAP test: 2018, WNL ? Material Received ?? ThinPrep-Cervical Copies To: ?? Rose Graves CNM ?? [address] [place] [address] [address] ?? [place] [address] ?? [phone] ?? Sol Flowers MD ?? [address] ?? [place] [address] ?? ----- ------- Signed (signature on file) PREET Donnelly (ASCP) 05/13/23 0958 ? ----- ------- ? END OF REPORT ? us Generic External Data Provider LAB CYTOLOGY ORDE RABLES Final Result Performing Organization Address [facility] Co de Phone Number [facility] [address] [place] [address] [phone] * HEPATITIS C AB W/REFL TO HCV RNA, QN, PCR (08/12/2021 12:00 AM EDT) HEPATITIS C ANTIBODY NON-REACT SHANI NON-REACT SHANI [facility] INDEX 0.04 <1.00 [facility] Comment: ?? HCV antibody was non-reactive. There is no laboratory ?? evidence of HCV infection. ?? In most cases, no further action is required. However, if recent HCV exposure is suspected, a test for HCV RNA (test code 27490) is suggested. ?? For additional information please refer to http://education.HerBabyShower/faq/BBV17c4 (This link is being provided for informational/ educational purposes only.) ?? 08/12/2021 Sol Flowers MD HISTORICAL/NON ORDERABLE LABS Fi nal Result Performing Organization Address [facility] Co de Phone Number [facility] [address] * HIV 1/2 ANTIGEN/ANTIBODY,FOURTH GENERATION W/RFL (08/12/2021 12:00 AM EDT) HIV-1/2 ANTIGEN AND ANTIBODIES, 4TH GENERATION W/ REFLEX NON-REACT SHANI NON-REACT SHANI [facility] Comment: HIV-1 antigen and HIV-1/HIV-2 antibodies were not detected. There is no laboratory evidence of HIV infection. ?? PLEASE NOTE: This information has been disclosed to you from records whose confidentiality may be protected by state law. ??If your state requires such protection, then the state law prohibits you from making any further disclosure of the information without the specific written consent of the person to whom it pertains, or as otherwise permitted by law. A general authorization for the release of medical or other information is NOT sufficient for this purpose. ? For additional information please refer to http://education.HerBabyShower/faq/SBB801 (This link is being provided for informational/ educational purposes only.) ? The performance of this assay has not been clinically validated in patients less than 2 years old. ?? 08/12/2021 us Sol Flowers MD LAB BLOOD ORDERABLES Final Resul t Performing Organization Address City/State/[facility] Co ks Phone Number [facility] [address] from Last 3 Months or Most Recently Relevant to Health Maintenance Insurance [facility] C3 Care Teams Refinery Operator Reforming Unit Relationship Specialty Start Date End Date Sol Flowers MD [address] [place] [address] PCP - General Family Medicine 05/30/18
--- OUTSIDE RECORDS SUMMARY | 2024-08-16 13:30 | XMS_ITS | Encounter Summary ---
Author Organization [employer] Address [address] [place] [address] 7t [place] [address] Care Team Providers Care Customer Service Associate Name Role Phone Sol Flowers MD Primary Care Provider [phone] Encounter Details Date Type Department Care Team ([facility] Contact Info) Description 06/18/2022 Orders Only [facility] [address] [place] [address] [phone] Carolynn Swan MD [address] [place] [address] [phone] Vaginal yeast infection (Primary Dx) Social History Tobacco Use Types Packs/Day Years Used Date Smoking Tobacco: Never Smokeless Tobacco: Never Alcohol Use Standard Drinks/Week Comments Yes 0 (1 standard drink = 0.6 oz pur e alcohol) Rare Comments Unknown Sex and Gender Information Value Date Recorded Sex Assigned at Female 03/29/2022 10:16 AM EDT Legal Sex Female 10:16 AM EDT Gender Identity Female 03/29/2022 10:16 AM EDT Sexual Orientation Choose not to disclose 2021 10:16 AM EDT COVID-19 Exposure Response Date Recorded In the last 10 days, have yo u been in contact with someone who was confirmed or suspected to have Coronavirus/COVID-19? No / Unsure 06/03/2022 3:28 PM EST documented as of this encounter Plan of Treatment Upcoming Encounters Date Type Department Care Team (Late st Contact Info) Description 09/24/2024 10:00 AM EDT Clinical Support [facility] [address] [place] [address] [phone] documented as of this encounter Procedures Procedure Name Priority Date/Time Associated Diagnosis Comments PAP SMEAR Routine 05/05/2023 11:45 AM EST Vaginal yeast infection BACTERIAL VAGINOSIS PANEL Routine 03/11/2023 8:16 AM EDT Vaginal yeast infection CHLAMYDIA/N. GONORRHOEAE RNA, TMA, UROGENITAL Routine 03/11/2023 8:16 AM EDT Vaginal yeast infection documented in this encounter Results * Pap Smear (05/05/2023 11:45 AM EST) 05/05/2023 11:4 5 AM EST 05/09/2023 8:50 AM EST [facility] - 05/13/2023 9:58 AM EST ----- ------- Name: Chhaya Panda ? Age/Sex: 37/F ? : 1985 Unit#: [id number] ?? Attend Dr: Rose Graves CNM ?Re05/05/23 ?Status: DEP REF ? Location: HO.LNP ?Disch: ? ----- ------- SPEC : [id number] ?RECD: 05/09/23 ? STATUS: ??SOUT ? REQ NUM: [id number] ? CAREN: 05/05/23 ? SUBM DR: Rose [...] 66, 68) ?? HPV testing performed by [employer] [facility], [place], [place]. ??See reference laboratory ?? portion of the EMR for entire report. ?Clinical Information LMP: 3 weeks ago Previous PAP test: 2018, WNL ? Material Received ?? ThinPrep-Cervical Copies To: ?? Rose Graves CNM ?? [address] [facility] [address] [facility] [address] ?? [place] [address] ?? [phone] ?? Sol Flowers MD ?? [address] [facility] ?? [place] [address] ?? ----- ------- Signed (signature on file) PREET Donnelly ([facility]) 05/13/23 0958 ? ----- ------- ? END OF REPORT ? Generic External Data Provider LAB CYTOLOGY ALEXSANDRAE RABELVA Final Result [facility] [address] [place] [address] [phone] * (ABNORMAL) Bacterial Vaginosis (03/11/2023 8:16 AM EDT) Trichomonas DNA Probe Negative Negative [facility] Gardnerella DNA Probe Positive(A) Negative [facility] Pearl DNA Probe Negative Negative [facility] 03/11/2023 8:16 AM EDT 03/11/2023 2:19 PM EDT [facility] Exter nal Provider LAB MICROBIOLOGY - GENERAL ORDERABLES Final Result [facility] [address] [place] [address] [phone] * Chlamydia/N. Gonorrhoeae RNA, TMA, Urogenitial (03/11/2023 8:16 AM EDT) CT PCR NOT DETECTED Not Detect. [facility] Comment:A not detected test result does not exclude the possibilityof infection because test results can be affected byimproper specimen collection, concurrent antibiotic therapy,or the number of organisms in the specimen which may bebelow the sensitivity of the test. As with many diagnostictests, results from the Xpert CT/NG assay should beinterpreted in conjunction with other laboratory andclinical data available to the clinician.Xpert CT/NG performance has not been evaluated in patientsless than 14 years of age. The assay should not be used forthe evaluationof suspected sexual abuse or for other medico-legalindications. Additional testing is recommended in anycircumstance when false positive or false negative resultscould lead to adverse medical, social or psychologicalconsequences. NG PCR NOT DETECTED Not Detect. [facility] Comment:A not detected test result does not exclude the possibilityof infection because test results can be affected byimproper specimen collection, concurrent antibiotic therapy,or the number of organisms in the specimen which may bebelow the sensitivity of the test. As with many diagnostictests, results from the Xpert CT/NG assay should beinterpreted in conjunction with other laboratory andclinical data available to the clinician.Xpert CT/NG performance has not been evaluated in patientsless than 14 years of age. The assay should not be used forthe evaluationof suspected sexual abuse or for other medico-legalindications. Additional testing is recommended in anycircumstance when false positive or false negative resultscould lead to adverse medical, social or psychologicalconsequences. 03/11/2023 8:16 AM EDT 03/11/2023 2:19 PM EDT Narrative [facility] - 03/11/2023 6:30 PM EDT Vaginal us [facility] Exter nal Provider LAB MICROBIOLOGY - GENERAL ORDERABLES Final Result [facility] [address] [place] [address] [phone] documented in this encounter Visit Diagnoses Diagnosis Vaginal yeast infection- Primary Candidiasis of vulva and vagina documented in this encounter Care Teams Customer Service Associate Relationship Specialty Start Date End Date Sol Flowers MD [address] [place] [phone] PCP - General Family Medicine 05/30/18 documented as of this encounter
--- OUTSIDE RECORDS SUMMARY | 2024-08-16 13:30 | XMS_ITS | Encounter Summary ---
Author Organization [employer] Address [address] 7 [place] [address] Care Team Providers Care Automotive Service Manager Name Role Phone Sol Flowers MD Primary Care Provider [phone] Reason for Visit * Reason Onset Date Comments Nurse Triage 07/19/2024 Encounter Details Date Type Department Care Team ([facility] st Contact Info) Description 07/19/2024 Telephone [facility] [address] [place], [place] [phone] Sol Flowers MD [address] [place], [place] [phone] Nurse Triage Social History Tobacco Use Types Packs/Day Years [...] your housing situation today? I have shruthi sing 07/29/[address] you li ve. Do you have problems with any of the following? None of the above 07/29/2023 Food Insecurity Answer Date Recorded Within the past 12 months, y ou worried that your food would run out before you got money to buy more: Never True 07/29/2023 Within the past 12 months,th e food you bought just didn't last and you didn't have enough money to get more: Never True 05/2023 Transportation Answer Date Recorded In the past 12 months, has l ack of transportation kept you from medical appts, meetings, work or from getting things needed for daily living? No 07/29/2023 Utilities Answer Date Recorded In the past 12 months, has t he electric, gas, oil or water company threatened to shut off services in your home? No 07/29/2023 Depression Answer Date Recorded Patient Health Questionnaire-2 Score 0 08/09/2023 Comments Unknown Sex and Gender Information Value Date Recorded Sex Assigned at Female 03/29/2022 10:16 AM EDT Legal Sex Female 10:16 AM EDT Gender Identity Female 03/29/2022 10:16 AM EDT Sexual Orientation Choose not to disclose 2021 10:16 AM EDT documented as of this encounter Miscellaneous Notes * Telephone Encounter - [place] Bella RN - 07/19/2024 3:43 PM EST called pt to triage, spoke to pt. pt states several days duration of urinary frequency, urgency, pressure, burning. pt denies strong odor noticed, blood, fever, back pain, or other associated symptoms. offered appt tomorrow, declined. offered walk in visit Tuesday in person, declined. pt states isworking tomorrow and Tuesday and wants something sent into the pharmacy. advised pt she would needto be seen and evaluated first. advised home are: rest, fluids, and call back as needed. advised totry an UC near her if needed. also offered the walk in center tomorrow and given location, hours and wait times cautions. pt understands and agrees with plan. insurance verified. Protocol Used: Urinary Symptoms (Adult) Protocol-Based Disposition: See in Office or Video Visit Today or Tomorrow Video visit offer not recorded Positive Triage Question: * Patient wants to be seen * All higher-acuity triage questions were negative Care Advice Discussed: * Reasons To Call Back - Fever occurs - Pain or burning with urination - Unable to urinate and bladder feels full - You become worse * Telephone Encounter - Maximo Cadena - 07/19/2024 2:58 PM EST Symptom: Urination Pain Outcome: Schedule an urgent appointment (within 1 hour) or talk to a nurse or provider soon Reason: Severe pain now The caller accepted this outcome. documented in this encounter Plan of Treatment Upcoming Encounters Date Type Department Care Team (Late st Contact Info) Description 09/24/2024 10:00 AM EDT Clinical Support [facility] [address] [place] [address] documented as of this encounter Visit Diagnoses Not on filedocumented in this encounter Additional Health Concerns Assessment Noted Time PHQ-9 Depression Total Score: 0 08/09/19 24 2:08 PM EDT documented as of this encounter Care Teams Automotive Service Manager Relationship Specialty Start Date End Date Sol Flowers MD [address] [place] [phone] PCP - General Family Medicine 05/30/18 documented as of this encounter
--- OUTSIDE RECORDS SUMMARY | 2024-08-16 13:30 | XMS_ITS | Encounter Summary ---
Author Organization [employer] Address [address] [place] [address] Care Team Providers Care Hip Hop Performers Name Role Phone Sol Flowers MD Primary Care Provider [phone] Encounter Details Date Type Department Care Team (Latest Contact Info) Description 08/16/2024 Travel Social History Tobacco Use Types Packs/Day Years [...] is your housing situation today? I have shruthimelissa jack 08/08/[address] you [...] Description 09/24/2024 10:00 AM EDT Clinical Support [facility] MEDICINE [address] [place] [address] documented as of this encounter Visit Diagnoses Not on filedocumented in this encounter Additional Health Concerns Assessment Noted Time PHQ-9 Depression Total Score: 0 08/09/19 24 2:08 PM EDT documented as of this encounter Care Teams Hip Hop Performers Relationship Specialty Start Date End Date Sol Flowers MD [address] [place] [address] PCP - General Family Medicine 05/30/18 documented as of this encounter
--- OUTSIDE RECORDS SUMMARY | 2024-08-16 13:30 | XMS_ITS | Encounter Summary ---
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 I have shruthi jack 07/29/[address] you li [...] Description 09/24/2024 10:00 AM EDT Clinical Support [facility] MEDICINE [address] [place] [id number] documented as of this encounter Visit Diagnoses Not on filedocumented in this encounter Additional Health Concerns Assessment Noted Time PHQ-9 Depression Total Score: 0 08/09/19 24 2:08 PM EDT documented as of this encounter Care Teams Stencil Cutter Relationship Specialty Start Date End Date Sol Flowers MD [address] [place] [address] PCP - General Family Medicine 05/30/18 documented as of this encounter
--- OUTSIDE RECORDS SUMMARY | 2024-08-16 13:30 | XMS_ITS | Encounter Summary ---
Author Organization [employer] Address [address] [facility] [address] [place] [address] Care Team Providers Care Coronary Care Unit Nurse Name Role Phone Sol Flowers MD Primary Care Provider [phone] Reason for Visit * Reason Onset Date Comments chart prep 08/15/2024 Encounter Details Date Type Department Care Team ([facility] Contact Info) Description 08/15/2024 Telephone [facility] MEDICINE [address] [place], [place] [phone] Sol Flowers MD [address] [place], [place] [phone] chart prep Social History Tobacco Use Types Packs/Day Years [...] housing situation today? I have shruthi sing 08/08/[address] you li [...] encounter Miscellaneous Notes * Telephone Encounter - Regine Albarran [place] - 08/15/2024 3:59 PM EDT ..chart Prep Labs: not applicable Images: not applicable Vaccines due: Covid Due, Hep B Due, and Flu Due Referrals: Completed Screenings: Not Applicable Overdue care gaps: Sbirt, PHQ-9, and destiny-7 disability documented in this encounter Plan of Treatment Upcoming Encounters Date Type Department Care Team (Late st Contact Info) Description 09/24/2024 10:00 AM EDT Clinical Support [facility] MEDICINE [address] [place] [address] documented as of this encounter Visit Diagnoses Not on filedocumented in this encounter Additional Health Concerns Assessment Noted Time PHQ-9 Depression Total Score: 0 08/09/19 24 2:08 PM EDT documented as of this encounter Care Teams Coronary Care Unit Nurse Relationship Specialty Start Date End Date Sol Flowers MD [address] [place] [address] PCP - General Family Medicine 05/30/18 documented as of this encounter
[2024-08-16 13:43] LABS: Estimated Average Glucose 103 mg/dL; Hemoglobin A1C 114.3324 umol/L; Hemoglobin A1c % 5.2 % (<6.0); Total Hemoglobin (HGBA1C) 3409.4803 umol/L
[2024-08-16 14:09] LABS: Alanine Aminotransferase 14 U/L (0-31); Albumin Level 3.7 g/dL (3.5-5.0); Alkaline Phosphatase 65 U/L (39-117); Anion Gap 8 (12-20); Aspartate Amino Transferase 21 U/L (5-31); Bilirubin Total 0.3 mg/dL (0.0-1.0); Blood Urea Nitrogen 11 mg/dL (9-16); Carbon Dioxide 26 mmol/L (22-29); Chloride 108 mmol/L (96-108); Cholesterol 146 mg/dL (<200); Estimated Glomerular Filt Rate > 60; Glucose Random 116 mg/dL (60-115); HDL Cholesterol 48 mg/dL (>40); LDL Cholesterol Calculated 78 mg/dL (<100); Potassium 4.1 mmol/L (3.3-5.1); Sodium 138 mmol/L (135-145); Total Protein 7.2 g/dL (6.5-8.0); Triglycerides 102 mg/dL (<150)
[2024-08-16 14:10] LABS: TSH reflex Free T4 1.56 uIU/mL (0.32-4.0); Vitamin D 25-OH Total 25.1 ng/mL (>30)
[2024-08-16 14:59] LABS: Reflex LDLD? No
== END 2024-08-16 11:17 | disposition home or self-care (01) ==
LOC: HO.HHCL 11:16
PROVIDERS: Visit Provider Family Medicine
DX: Z13.1 Encounter for screening for diabetes mellitus (principal); Z13.220 Encounter for screening for lipoid disorders; R03.0 Elevated blood-pressure reading, without diagnosis of hypertension; E55.9 Vitamin D deficiency, unspecified
CPT/HCPCS: 36415; 80053; 80061; 82306; 83036; 84443